=== PATIENT | female | born 1955 | race Caucasian/White ===

== ENCOUNTER 2018-11-16 05:42 | Day surgery (SDC) | payer MEDICAID, OTHER ==
[~2018-11-16] VITALS: Ht 149.9 cm; Wt 103.8 kg
[2018-11-16 07:11] VITALS: Ht 149.9 cm; Wt 103.8 kg
[2018-11-16] MEDS ORDERED: LEVO75TA5 PO (07:20)
[2018-11-16] MEDS ORDERED: ASPI-817 PO (07:20)
[2018-11-16] MEDS ORDERED: LOSA1TAB22 PO (07:20)
[2018-11-16] MEDS ORDERED: PROPOFOL 20 ML ONE (07:30)
--- NOTE | 2018-11-16 07:30 | PREAC ---
Date/Time of Note Date/Time of Note DATE: 11/16/18 TIME: 07:28 Anesthesia Eval and Record Evaluation Time Pre-Procedure Interview DATE: 11/16/18 TIME: 07:28 Age 63 Sex female NPO: 8 hrs Preoperative diagnosis screening colon cancer Planned procedure colonoscopy Past Medical History Past Medical History: Includes Cardio: HTN Endo: Hypothyroid GI: Morbid obesity Surgery & Anesthesia Issues No known issue Meds Anticoagulation: No Beta Betito within 24 hr: No Reason Beta Betito not given: Pt. not on B-Betito Reported Medications Losartan-Hydrochlorothiazide (Losartan-HCTZ) 50-12.5 Mg Tab, 1 TAB PO DAILY, TAB 11/16/18 Levothyroxine Sodium* (Levothyroxine Sodium*) 75 Mcg Tablet, 75 MCG PO BEFORE BREAKFAST, #30 TAB 11/16/18 Aspirin* (Aspirin* EC) 81 Mg Tablet.dr, 81 MG PO DAILY, TAB 11/16/18 Meds reviewed: Yes Allergies Coded Allergies: No Known Allergy (Unverified , 11/16/18) Allergies Reviewed: Yes Labs/Studies Labs Reviewed: Reviewed by anesthesiologist test: N/A Pre-procedure Exam Airway: Adequate mouth opening, Adequate thyromental dist Mallampati: Mallampati II Teeth: Normal Lung: Normal Heart: Normal ASA Physical Status ASA physical status: 2 Emergency: None Planned Pain Management Parenteral pain med, Local by surgeon Pre-operative Attestations Prior to commencing anesthesia and surgery, the patient was re-evaluated, there was verification of: *The patient's identity *The results of appropriate recent lab work and preoperative vital signs *The above evaluation not changing prior to induction *Anesthetic plan, risk benefits, alternative and complications discussed with patient/family; questions answered; patient/family understands, accepts and wishes to proceed. JASON HERNANDEZ Nov 16, 2018 07:30
[2018-11-16 07:34] VITALS: BP 170/80; PULSE 88; RESP 0
--- NOTE | 2018-11-16 08:00 | PAC ---
Date/Time of Note Date/Time of Note DATE: 11/16/18 TIME: 07:59 Post-Anesthesia Notes Post-Anesthesia Note Last documented vital signs POST BP HR 76 Spo2 99% RR 16 Temp 97.5 Activity: WNL Respiratory function: WNL Cardiovascular function: WNL Mental status: Baseline Pain reasonably controlled: Yes Hydration appropriate: Yes Nausea/Vomiting absent: Yes JASON HERNANDEZ Nov 16, 2018 08:00
[2018-11-16 08:22] VITALS: BP 123/75; PULSE 77; RESP 14
== END 2018-11-16 12:22 | disposition home or self-care (01) ==
LOC: GIL 05:42
PROVIDERS: ATTEND Internal Medicine Gastroenterology
DX: Z12.11 Encounter for screening for malignant neoplasm of colon (principal); K64.8 Other hemorrhoids; I10 Essential (primary) hypertension